=== PATIENT | female | born 1995 | race Caucasian/White ===

== ENCOUNTER 2021-12-31 14:29 | Inpatient (IN) | payer BC ==
[2021-12-31] MEDS ORDERED: TERBUTALINE 1 MG/ML VIAL SQ PRN (14:48)
[2021-12-31] MEDS ORDERED: CLINDAMYCIN 900 MG in DEXTROSE 5% IN WATER 50 ML IVPB STA ×2 (14:48)
[2021-12-31] MEDS ORDERED: CARBOPROST TROMETHAMINE 250 MCG/ML 1 ML AMP IM PRN (14:48)
[2021-12-31] MEDS ORDERED: LIDOCAINE 0.5% (PF) 5 MG/ML (50 ML SDV) SQ PRN (14:48)
[2021-12-31] MEDS ORDERED: OXYTOCIN 10 UNIT/ML 1 ML VIAL IM PRN (14:48)
[2021-12-31] MEDS ORDERED: METHYLERGONOVINE 0.2 MG/ML 1 ML AMP IM PRN (14:48)
[2021-12-31] MEDS ORDERED: LACTATED RINGERS 1,000 ML IV SCH (15:00)
[2021-12-31 15:05] LABS: Basophils % (A) 0 %; Eosinophils % (A) 1 %; HCT 36.3 % (34.0-46.0); HGB 12.3 gm/dL (11.4-16.0); Lymphocytes # (A) 1.8 k/uL (1.0-4.8); Lymphocytes % (A) 19 %; MCH 29.4 pg (25.0-35.0); MCV 86.7 fL (80.0-100.0); Mean Platelet Volume 8.3; Monocytes # (A) 0.6 k/uL (0-1.0); Monocytes % (A) 6 %; Neutrophils # (A) 6.8 k/uL (1.3-7.7); Neutrophils % (A) 72 %; Platelet Count 296 k/uL (150-450); RBC 4.19 m/uL (3.80-5.40); RDW 12.3 % (11.5-15.5); WBC 9.5 k/uL (3.8-10.6)
[2021-12-31] MEDS ORDERED: OXYTOCIN 30 UNITS/500 ML NS 30 UNIT in SALINE 1 500ML.BAG IV SCH ×2 (15:45→19:26)
--- NOTE | 2021-12-31 18:41 | P.HPOB ---
History of Present Illness H&P Date: 12/31/21 Chief Complaint: Advanced cervical dilation This is a 26-year-old female 2 para 0 with an estimated date of confinement of 01/29/2022, estimated gestational age of 35-6/7 weeks, who presents to labor and delivery after being seen in the office for her scheduled visit and found to be 7-8 cm. She was checked for the first time a week ago and was found to be 5 cm 80% and -2 station and group B strep was taken at that time. Group B streptococcus is positive. She denies any regular contractions but does state she feels a lot of pressure. With her cervix dilated this dilated, she is sent to labor and delivery for antibiotics and delivery. Her has been uncomplicated up until this time. labs: Group B streptococcus-positive One hour Glucola-75 Obstetrical ultrasound-normal anatomy Hepatitis B surface antigen-negative RPR-nonreactive Rubella-immune Blood type-A+ Antibody screen-negative HIV-nonreactive Hemoglobin-13.6 Toxoplasma-negative Random glucose-84 GC/chlamydia/Trichomonas-negative Obstetrical history: . History of 1 termination of Gynecologic history: No history of sexual transmitted diseases Social history: She is single. 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 Review of Systems Constitutional: Denies chills, Denies fever Eyes: denies blurred vision, denies pain Ears, nose, mouth and throat: Denies headache, Denies sore throat Cardiovascular: Denies chest pain, Denies shortness of breath Respiratory: Denies cough Gastrointestinal: Reports abdominal pain (Irregular mild cramping occasionally) Genitourinary: Reports pelvic pain, Reports Musculoskeletal: Reports low back pain Integumentary: Denies pruritus, Denies rash Neurological: Denies numbness, Denies weakness Psychiatric: Denies anxiety, Denies depression Past Medical History Past Medical History: GERD/Reflux, Rheumatoid Arthritis (RA) (Juvenile) History of Any Multi-Drug Resistant Organisms: None Reported Past Surgical History: Orthopedic Surgery Additional Past Surgical History / Comment(s): ACL Reconstruction Past Anesthesia/Blood Transfusion Reactions: Postoperative Nausea & Vomiting (PONV) Past Psychological History: No Psychological Hx Reported Smoking Status: Former smoker Past Alcohol Use History: None Reported Past Drug Use History: None Reported - Past Family History Father Family Medical History: No Reported History Mother Family Medical History: No Reported History Medications and Allergies Home Medications Medication Instructions Recorded Confirmed Type Vit No.179/Iron/Folic 1 tablet PO DAILY 12/31/21 12/31/21 History [ Tablet] Allergies Allergy/AdvReac Type Severity Reaction Status Date / Time Penicillins Allergy Rash/Hives Verified 12/31/21 14:47 Exam Osteopathic Statement: *. No significant issues noted on an osteopathic structural exam other than those noted in the History and Physical/Consult. Vital Signs Temp Pulse Resp BP Pulse Ox 12/31/21 14:46 97.8 F 74 16 133/74 98 Intake and Output 12/31/21 12/31/21 12/31/21 06:59 14:59 22:59 Other: Weight 83.007 kg HEENT: Within normal limits Heart: Regular rate and rhythm Lungs: Clear to auscultation bilaterally Abdomen: Cervix: 7-8 cm/70-80%/-2 station heart tones: 120s, reactive, category 1 Contractions: Rare Extremities: Negative Homans Results Result Diagrams: 12/31/21 14:50 Assessment and Plan (1) 35 weeks gestation of Current Visit: Yes Status: Acute Code(s): Z3A.35 - 35 WEEKS GESTATION OF SNOMED Code(s): 60226161 (2) labor in third trimester with delivery Current Visit: Yes Status: Acute Code(s): O60.14X0 - LABOR THIRD TRI W DELIVERY THIRD TRI, UNSP SNOMED Code(s): 92804911449127564 (3) Group B Streptococcus carrier, +RV culture, currently Current Visit: Yes Status: Acute Code(s): O99.820 - STREPTOCOCCUS B CARRIER STATE COMPLICATING SNOMED Code(s): 9618306918576 Plan: Admission for advanced cervical dilation. Antibiotic prophylaxis for group B streptococcus. Artificial rupture membranes with oxytocin augmentation of labor if necessary. Expectant management. Pediatrics is notified.
[2021-12-31] MEDS ORDERED: HYDROCORTISONE 2.5% RECTAL CREAM 30 GM TUBE RECTAL PRN (19:26)
[2021-12-31] MEDS ORDERED: LANOLIN CREAM 5 GM TUBE TOPICAL PRN (19:26)
[2021-12-31] MEDS ORDERED: BENZOCAINE/MENTHOL SPRAY 1 GM/SPRAY AEROSOL TOPICAL PRN (19:26)
[2021-12-31] MEDS ORDERED: ZOLPIDEM 5 MG TAB PO PRN (19:26)
[2021-12-31] MEDS ORDERED: diphenhydrAMINE 25 MG CAP PO PRN (19:26)
[2021-12-31] MEDS ORDERED: diphenhydrAMINE 50 MG/ML 1 ML VIAL IVP PRN ×2 (19:26)
[2021-12-31] MEDS ORDERED: SIMETHICONE 80 MG CHEWABLE PO PRN (19:26)
[2021-12-31] MEDS ORDERED: diphenhydrAMINE 50 MG CAP PO PRN (19:26)
--- NOTE | 2021-12-31 19:43 | P.PROBDLV ---
Vaginal Delivery Note - . Vaginal Delivery Note: The patient progressed to complete dilation after artificial rupture membranes with clear fluid noted and oxytocin augmentation of labor. She had nothing for pain. She did have 1 dose of clindamycin. Once reaching complete, she began pushing. Infant's head came to a crown. At this time heart tones were noted to be in the 60s with pushing. Episiotomy was cut after anesthetizing with 1% lidocaine. With one further push the 's head delivered across the per ineum followed by the remainder of the infant. Nose and mouth were bulb suctioned and was placed on mother's abdomen. Cord was clamped and cut and infant was taken to warmer for evaluation by nursing staff. A viable male is noted with scores of 9 at 1 minute and 9 at 5 minutes and weight of 5 lbs. 4 oz. Her placenta delivered shortly thereafter, intact, with a three-vessel cord. Uterus contracted well after oxytocin was given and uterine massage was carried out. Bladder was drained with a catheter. Inspection of the perineum revealed a midline episiotomy with no further extension. This area was anesthetized with 1% lidocaine and then sutured with 3-0 and 2-0 Vicryl suture in the usual multilayer fashion. Estimated blood loss was approximately 200 mL's. Mother is in stable condition and is taken to level I nursery for observation.
[2021-12-31] MEDS: SENNOSIDES-DOCUSATE SODIUM 1 EACH TAB PO SCH (19:47)
[2021-12-31] MEDS: IBUPROFEN 600 MG TAB PO PRN (19:47)
[2021-12-31] MEDS: ACETAMINOPHEN TAB 325 MG TAB PO PRN (22:51)
[2021-12-31] MEDS ORDERED: CLINDAMYCIN 900 MG in DEXTROSE 5% IN WATER 50 ML IVPB SCH ×2 (23:00)
[2022-01-01] MEDS: IBUPROFEN 600 MG TAB PO PRN ×3 (04:01→23:39)
[2022-01-01 06:29] LABS: Basophils % (A) 0 %; Eosinophils # (A) 0.1 k/uL (0-0.7); Eosinophils % (A) 0 %; HCT 32.5 % (34.0-46.0); HGB 11.2 gm/dL (11.4-16.0); Lymphocytes # (A) 1.8 k/uL (1.0-4.8); Lymphocytes % (A) 14 %; MCH 30.3 pg (25.0-35.0); MCHC 34.4 g/dL (31.0-37.0); MCV 88.1 fL (80.0-100.0); Mean Platelet Volume 8.4; Monocytes # (A) 0.7 k/uL (0-1.0); Monocytes % (A) 6 %; Neutrophils # (A) 10.3 k/uL (1.3-7.7); Neutrophils % (A) 79 %; Platelet Count 268 k/uL (150-450); RBC 3.69 m/uL (3.80-5.40); RDW 12.5 % (11.5-15.5)
[2022-01-01] MEDS: ACETAMINOPHEN TAB 325 MG TAB PO PRN ×2 (07:29→18:38)
[2022-01-01] MEDS: SENNOSIDES-DOCUSATE SODIUM 1 EACH TAB PO SCH ×2 (07:29→23:09)
--- NOTE | 2022-01-01 08:03 | P.PNOBGVD ---
Subjective - Subjective Principal diagnosis: Status post vaginal delivery day #1 Interval history: Patient is doing well. Lochia is decreasing. Her pain is fairly well controlled with ibuprofen. She is pumping her breast milk. Baby is in level I nursery. Patient reports: Reports appetite normal, Reports voiding normally, Reports pain well controlled, Reports ambulating normally : other (In level I nursery) Objective - Latest Vital Signs Latest vital signs: Vital Signs Temp Pulse Resp BP Pulse Ox 01/01/22 07:30 98.3 F 67 16 104/60 99 01/01/22 04:00 97.8 F 77 16 101/60 99 01/01/22 00:00 98.3 F 72 14 103/61 99 12/31/21 21:29 96.9 F L 71 14 125/64 12/31/21 20:59 78 16 125/63 12/31/21 20:29 88 14 116/76 12/31/21 20:14 97.3 F L 92 14 104/63 12/31/21 19:59 81 14 110/62 12/31/21 19:44 67 14 111/55 12/31/21 19:29 97.2 F L 80 16 112/56 12/31/21 14:46 97.8 F 74 16 133/74 98 Intake and Output 12/31/21 01/01/22 01/01/22 22:59 06:59 14:59 Intake Total 900 Output Total 419 Balance 481 Intake: IV 900 Output: Urine 300 Output, Quantitative 119 Blood Loss Other: Voiding Method Toilet # Voids 1 - Exam Extremities: Present: normal. Absent: tenderness, edema Abdomen: Present: normal appearance, soft. Absent: distention, tenderness Uterus: Present: normal, firm. Absent: tenderness - Labs Labs: Abnormal Lab Results - Last 24 Hours (Table) 01/01/22 Range/Units 06:07 WBC 13.0 H (3.8-10.6) k/uL RBC 3.69 L (3.80-5.40) m/uL Hgb 11.2 L (11.4-16.0) gm/dL Hct 32.5 L (34.0-46.0) % Neutrophils # 10.3 H (1.3-7.7) k/uL Assessment and Plan Assessment: Status post vaginal delivery day #1 (1) 35 weeks gestation of Current Visit: Yes Status: Acute Code(s): Z3A.35 - 35 WEEKS GESTATION OF SNOMED Code(s): 38981124 (2) labor in third trimester with delivery Current Visit: Yes Status: Acute Code(s): O60.14X0 - LABOR THIRD TRI W DELIVERY THIRD TRI, UNSP SNOMED Code(s): 29916881187770578 (3) Group B Streptococcus carrier, +RV culture, currently Current Visit: Yes Status: Acute Code(s): O99.820 - STREPTOCOCCUS B CARRIER STATE COMPLICATING SNOMED Code(s): 6238051589907 Plan: Continue care. Anticipate discharge home tomorrow. Breast pump prescription is given.
[2022-01-01] MEDS: PRENATAL VIT-IRON-FOLIC ACID 1 EACH TABLET PO SCH (09:15)
--- NOTE | 2022-01-02 07:46 | P.DS ---
Providers Date of admission: 12/31/21 14:29 Expected date of discharge: 01/02/22 Attending physician: Aicha Juares Primary care physician: Stated None - Discharge Diagnosis(es) (1) Normal vaginal delivery Current Visit: Yes Status: Acute Hospital Course: Patient presented to the office dilated 7 cm. She was sent to the hospital to undergo Pitocin augmentation. She underwent normal vaginal delivery. course was uncomplicated. She denies nausea, vomiting, chest pain, shortness of breath or any calf pain. Patient will be discharged home po stpartum day #2 in stable condition to follow-up with Dr. Juares in 6 weeks. Plan - Discharge Summary New Discharge Prescriptions: New Ibuprofen [Motrin] 600 mg PO Q6HR PRN #60 tab PRN Reason: Mild Pain (Scale 1 To 3) No Action Vit No.179/Iron/Folic [ Tablet] 1 tablet PO DAILY Discharge Medication List Vit No.179/Iron/Folic [ Tablet] 1 tablet PO DAILY 12/31/21 [History] Ibuprofen [Motrin] 600 mg PO Q6HR PRN #60 tab 01/01/22 [Rx] Follow up Appointment(s)/Referral(s): Aicha Juares DO [Doctor of Osteopathic Medicine] - 6 Weeks Activity/Diet/Wound Care/Special Instructions: Instructions 1. Do not begin any exercise program for 3 weeks. 2. Do not resume sexual relations for 3 weeks or longer if uncomfortable. 3. You may take tub baths or showers at any time. 4. You may use tampons if desired after 3 weeks. 5. Keep the area of episiotomy (stitches) clean and dry. 6. If you are not nursing, wear a good fitting, supportive bra during the day and limit fluid intake for at least 1 week to prevent breast engorgement. 7. Call the office, [phone], within the next week to make appointment for your 6 week checkup if it has not already been made. 8. Report any of the following occurrences to the doctor promptly: a. Heavy, excessive bleeding b. Chills, fever c. Burning or frequency of urination d. Pain or redness and breasts if nursing e. Increasing pain or swelling in episiotomy (stitches). In addition to the above instructions, the following additional should be followed: 1. No heavy lifting or straining (exercising) until after 6 week checkup. 2. Keep abdominal incision clean and dry: You may wear a dressing if more comfortable. 3. Make office appointment for 10 days after going home or as instructed by her doctor. Discharge Disposition: HOME SELF-CARE
[2022-01-02 09:05] VITALS: BP 117/72; PULSE 70; RESP 17; TEMP 98
[2022-01-02] MEDS: SENNOSIDES-DOCUSATE SODIUM 1 EACH TAB PO SCH (09:08)
[2022-01-02] MEDS: PRENATAL VIT-IRON-FOLIC ACID 1 EACH TABLET PO SCH (09:11)
== END 2022-01-02 12:00 | disposition home or self-care (01) | DRG 807 ==
LOC: 4FBP 14:29
PROVIDERS: ADMIT Obstetrics & Gynecology; ATTEND Obstetrics & Gynecology
PROC: 10E0XZZ Delivery of Products of Conception, External Approach (ICD-10-PCS; principal; 2021-12-31)
PROC: 10907ZC Drainage of Amniotic Fluid, Therapeutic from Products of Conception, Via Natural or Artificial Opening (ICD-10-PCS; 2021-12-31)
PROC: 0W8NXZZ Division of Female Perineum, External Approach (ICD-10-PCS; 2021-12-31)
DX: O60.14X0 Preterm labor third trimester with preterm delivery third trimester, not applicable or unspecified (principal); Z37.0 Single live birth; Z3A.35 35 weeks gestation of pregnancy; O99.824 Streptococcus B carrier state complicating childbirth; Z87.891 Personal history of nicotine dependence; Z88.0 Allergy status to penicillin
CPT/HCPCS: 85025; 86850; 86900; 86901

== ENCOUNTER 2023-08-17 18:17 | Emergency (ER) | payer BC ==
[2023-08-17 19:04] VITALS: RESP 18; TEMP 98.1
--- NOTE | 2023-08-17 19:12 | ED ---
Abdominal Pain HPI - General Source: patient Mode of arrival: ambulatory Limitations: no limitations <Earl Naranjo - Last Filed: 08/17/23 19:10> - General Source: patient, RN notes reviewed Mode of arrival: ambulatory Limitations: no limitations - History of Present Illness MD Complaint: abdominal pain <Mayda Elaine - Last Filed: 08/17/23 22:50> - General Chief Complaint: Abdominal Pain Stated Complaint: abd pain N/V/D headache Time Seen by Provider: 08/17/23 20:20 - History of Present Illness Initial Comments: 28-year-old female presenting with chief complaint of abdominal pain. She also admits to vomiting and diarrhea. Seems to be worse at night. (Earl Naranjo) This is a 28-year-old female who presents to the emergency department for abdominal pain. States that this started 2 days ago. She does okay during the day, however at night she develops severe pain in the epigastric region of her abdomen with nausea and vomiting. Unsure if this relates to any specific foods, as she has not had anything to eat today, and today the pain is worse than it has ever been. Prior to 2 days ago, she has never experienced anything like this in the past. Reports some diarrhea. (Mayda Elaine) - Related Data Home Medications Medication Instructions Recorded Confirmed Vit No.179/Iron/Folic 1 tablet PO DAILY 12/31/21 12/31/21 [ Tablet] Previous Rx's Medication Instructions Recorded Ibuprofen [Motrin] 600 mg PO Q6HR PRN #60 tab 01/01/22 Ketorolac [Toradol] 10 mg PO Q6HR PRN #15 tab 08/17/23 Ondansetron Odt [Zofran Odt] 4 mg PO Q8HR PRN #20 tab 08/17/23 Allergies Allergy/AdvReac Type Severity Reaction Status Date / Time Penicillins Allergy Rash/Hives Verified 12/31/21 14:47 Review of Systems ROS Other: All systems not noted in ROS Statement are negative. <Earl Naranjo - Last Filed: 08/17/23 19:10> ROS Other: All systems not noted in ROS Statement are negative. <Mayda Elaine - Last Filed: 08/17/23 22:50> ROS Statement: Those systems with pertinent positive or pertinent negative responses have been documented in the HPI. Past Medical History Past Medical History: GERD/Reflux, Rheumatoid Arthritis (RA) History of Any Multi-Drug Resistant Organisms: None Reported Past Surgical History: Orthopedic Surgery Additional Past Surgical History / Comment(s): ACL Reconstruction Past Anesthesia/Blood Transfusion Reactions: Postoperative Nausea & Vomiting (PONV) Past Psychological History: No Psychological Hx Reported Smoking Status: Former smoker Past Alcohol Use History: None Reported Past Drug Use History: None Reported - Past Family History Father Family Medical History: No Reported History Mother Family Medical History: No Reported History <aErl Naranjo - Last Filed: 08/17/23 19:10> General Exam Limitations: no limitations <Earl Naranjo - Last Filed: 08/17/23 19:10> Limitations: no limitations General appearance: alert, in no apparent distress Head exam: Present: atraumatic, normocephalic, normal inspection Respiratory exam: Present: normal lung sounds bilaterally. Absent: respiratory distress, wheezes, rales, rhonchi, stridor Cardiovascular Exam: Present: regular rate, normal rhythm, normal heart sounds. Absent: systolic murmur, diastolic murmur, rubs, gallop, clicks GI/Abdominal exam: Present: soft, tenderness (Epigastric), normal bowel sounds. Absent: distended Neurological exam: Present: alert, oriented X3, CN II-XII intact Psychiatric exam: Present: normal affect, normal mood Skin exam: Present: warm, dry, intact, normal color. Absent: rash <Mayda Elaine - Last Filed: 08/17/23 22:50> - General Exam Comments Initial Comments: Visual Physical Exam Vital signs reviewed General: Well-appearing, nontoxic, no acute distress. Head: Normocephalic, atraumatic Eyes: PERRLA, EOMI ENT: Airway patent Chest: Nonlabored breathing Skin: No visual rash, normal skin tone Neuro: Alert and oriented 3 Musculoskeletal: No gross abnormalities (Earl Naranjo) Course Vital Signs 08/17/23 08/17/23 18:43 22:32 Temperature 98.1 F Pulse Rate 60 78 Respiratory 18 18 Rate Blood Pressure 122/88 120/70 O2 Sat by Pulse 100 100 Oximetry Medical Decision Making <Earl Naranjo - Last Filed: 08/17/23 19:10> - Lab Data Result diagrams: 08/17/23 20:17 08/17/23 20:17 - Radiology Data Radiology results: report reviewed, image reviewed <[email or web address] - Last Filed: 08/17/23 22:50> - Medical Decision Making I performed the quick note portion of this visit, electronically signed Earl Naranjo PA-C (Earl Naranjo) This is a 28-year-old female who presents to the emergency department for abdominal pain. Was pt. sent in by a medical professional or institution? @ -No Did you speak to anyone other than the patient for history? @ -No Did you review nursing and triage notes? @ -Yes, and I agree, it is accurate with regards to the patient's symptoms. Were old charts reviewed? @ -No Differential Diagnosis? @ -Differential Abdominal Pain Women: Appendicitis, Cholecystitis, diverticulosis, ischemic bowel, pancreatitis, hepatitis, UTI, gastroenteritis, AAA, incarcerated hernia, bowel obstruction, constipation, inflammatory bowel, hepatitis, peptic ulcer disease, splenic i nfarction, perforated viscus, vulvitis, ovarian torsion, PID, kidney stone, placenta abruption, this is not meant to be an all-inclusive list EKG interpreted by me (3pts min.)? @ -Not obtained X-rays interpreted by me (1pt min.)? @ -Not obtained CT interpreted by me (1pt min.)? @ -CT scan of the abdomen and pelvis obtained. My interpretation identifies mild wall thickening of the small bowel. U/S interpreted by me (1pt. min.)? @ -Gallbladder ultrasound obtained. My interpretation identifies no evidence of cholelithiasis. What testing was considered but not performed? (CT, X-rays, U/S, labs)? Why? @ -None What meds were considered but not given? Why? @ -None Did you discuss the management of the patient with other professionals? @ -No Did you reconcile home meds? @ -No Was smoking cessation discussed for >3mins.? @ -No Was critical care preformed (if so, how long)? @ -No Were there social determinants of health that impacted care today? How? (Homelessness, low income, unemployed, alcoholism, drug addiction, tra nsportation, low edu. Level, literacy, decrease access to med. care, prison, rehab)? @ -No Was there de-escalation of care discussed even if they declined? (Discuss DNR or withdrawal of care, Hospice)? @ -No What co-morbidities impacted this encounter? (DM, HTN, Smoking, COPD, CAD, Cancer, CVA, Hep., AIDS, mental health diagnosis, sleep apnea, morbid obesity)? @ -GERD Was patient admitted / discharged? @ -Discharged. Lab work obtained revealing leukocytosis and was otherwise unremarkable. Urinalysis negative for signs of infection. Gallbladder ultrasound obtained demonstrating a right hepatic lobe hemangioma without evidence for acute process or gallbladder irregularities. Her symptoms are well-controlled with IV fluids, Toradol, and Zofran. Discussed with the patient that symptoms could be related to biliary dyskinesia or other process. I did offer to obtain a CT scan for further evaluation given the associated leukocytosis. Patient was in agreement to additional imaging, but requested dis charge due to the duration of her visit in the emergency department and to be contacted with any irregularities that would necessitate her return. CT scan of the abdomen and pelvis demonstrates mild wall thickening of the small bowel suggestive of enteritis. Patient contacted regarding the results, and that she can continue with symptomatic management. I did advise she follow-up with her primary care provider to discuss a HIDA scan for further evaluation of her gallbladder function. Prescription for Toradol and Zofran provided with dosing instructions reviewed. Patient discharged home in stable condition. Undiagnosed new problem with uncertain prognosis? @ -None Drug Therapy requiring intensive monitoring for toxicity (Heparin, Nitro, Insulin, Cardizem)? @ -None Were any procedures done? @ -None Diagnosis/symptom? @ -Abdominal pain, enteritis Acute, or Chronic, or Acute on Chronic? @ -Acute Uncomplicated (without systemic symptoms) or Complicated (systemic symptoms)? @ -Uncomplicated Side effects of treatment? @ -None Exacerbation, Progression, or Severe Exacerbation] @ -Not applicable Poses a threat to life or bodily function? @ -No Return precautions reviewed in depth, the patient is instructed to return to the emergency department with any new, worsening, or concerning symptoms. Patient verbalized understanding. This case was discussed in detail with the attending ED physician, Dr. Solorio. Presentation, findings, and treatment plan discussed in detail as well. (Mayda Elaine) - Lab Data Lab Results 08/17/23 08/17/23 08/17/23 Range/Units 20:17 20:17 20:25 WBC 14.0 H (3.8-10.6) k/uL RBC 4.44 (3.80-5.40) m/uL Hgb 13.4 (11.4-16.0) gm/dL Hct 38.4 (34.0-46.0) % MCV 86.4 (80.0-100.0) fL MCH 30.0 (25.0-35.0) pg MCHC 34.8 (31.0-37.0) g/dL RDW 12.2 (11.5-15.5) % Plt Count 325 (150-450) k/uL MPV 7.3 Neutrophils % 82 % Lymphocytes % 12 % Monocytes % 4 % Eosinophils % 1 % Basophils % 0 % Neutrophils # 11.4 H (1.3-7.7) k/uL Lymphocytes # 1.7 (1.0-4.8) k/uL Monocytes # 0.5 (0-1.0) k/uL Eosinophils # 0.1 (0-0.7) k/uL Basophils # 0.0 (0-0.2) k/uL Sodium 136 L (137-145) mmol/L Potassium 3.8 (3.5-5.1) mmol/L Chloride 107 (98-107) mmol/L Carbon Dioxide 20 L (22-30) mmol/L Anion Gap 9 mmol/L BUN 9 (7-17) mg/dL Creatinine 0.63 (0.52-1.04) mg/dL Est GFR (CKD-EPI)AfAm >90 (>60 ml/min/1.73 sqM) Est GFR (CKD-EPI)NonAf >90 (>60 ml/min/1.73 sqM) Glucose 101 H (74-99) mg/dL Calcium 9.2 (8.4-10.2) mg/dL Total Bilirubin 0.8 (0.2-1.3) mg/dL AST 19 (14-36) U/L ALT 12 (4-34) U/L Alkaline Phosphatase 48 (38-126) U/L Total Protein 7.2 (6.3-8.2) g/dL Albumin 4.6 (3.5-5.0) g/dL Amylase 58 (30-110) U/L Lipase 36 (23-300) U/L Urine Color Yellow Urine Appearance Clear (Clear) Urine pH 7.5 (5.0-8.0) Ur Specific [place] 1.034 (1.001-1.035) Urine Protein 1+ H (Negative) Urine Glucose (UA) Negative (Negative) Urine Ketones 4+ H (Negative) Urine Blood Negative (Negative) Urine Nitrite Negative (Negative) Urine Bilirubin Negative (Negative) Urine Urobilinogen 2.0 (<2.0) mg/dL Ur Leukocyte Esterase Small H (Negative) Urine RBC 3 (0-5) /hpf Urine WBC 6 H (0-5) /hpf Ur Squamous Epith Cells 3 (0-4) /hpf Urine Mucus Many H (None) /hpf Urine HCG, Qual (Not Detectd) 08/17/23 Range/Units 20:25 WBC (3.8-10.6) k/uL RBC (3.80-5.40) m/uL Hgb (11.4-16.0) gm/dL Hct (34.0-46.0) % MCV (80.0-100.0) fL MCH (25.0-35.0) pg MCHC (31.0-37.0) g/dL RDW (11.5-15.5) % Plt Count (150-450) k/uL MPV Neutrophils % % Lymphocytes % % Monocytes % % Eosinophils % % Basophils % % Neutrophils # (1.3-7.7) k/uL Lymphocytes # (1.0-4.8) k/uL Monocytes # (0-1.0) k/uL Eosinophils # (0-0.7) k/uL Basophils # (0-0.2) k/uL Sodium (137-145) mmol/L Potassium (3.5-5.1) mmol/L Chloride (98-107) mmol/L Carbon Dioxide (22-30) mmol/L Anion Gap mmol/L BUN (7-17) mg/dL Creatinine (0.52-1.04) mg/dL Est GFR (CKD-EPI)AfAm (>60 ml/min/1.73 sqM) Est GFR (CKD-EPI)NonAf (>60 ml/min/1.73 sqM) Glucose (74-99) mg/dL Calcium (8.4-10.2) mg/dL Total Bilirubin (0.2-1.3) mg/dL AST (14-36) U/L ALT (4-34) U/L Alkaline Phosphatase (38-126) U/L Total Protein (6.3-8.2) g/dL Albumin (3.5-5.0) g/dL Amylase (30-110) U/L Lipase (23-300) U/L Urine Color Urine Appearance (Clear) Urine pH (5.0-8.0) Ur Specific [place] (1.001-1.035) Urine Protein (Negative) Urine Glucose (UA) (Negative) Urine Ketones (Negative) Urine Blood (Negative) Urine Nitrite (Negative) Urine Bilirubin (Negative) Urine Urobilinogen (<2.0) mg/dL Ur Leukocyte Esterase (Negative) Urine RBC (0-5) /hpf Urine WBC (0-5) /hpf Ur Squamous Epith Cells (0-4) /hpf Urine Mucus (None) /hpf Urine HCG, Qual Not Detected (Not Detectd) Disposition <Earl Naranjo - Last Filed: 08/17/23 19:10> Is patient prescribed a controlled substance at d/c from ED?: No Time of Disposition: 22:17 <Mayda Elaine - Last Filed: 08/17/23 22:50> Clinical Impression: Abdominal pain Disposition: HOME SELF-CARE Instructions (If sedation given, give patient instructions): Abdominal Pain (ED) Additional Instructions: Return to the emergency department with any new, worsening, or concerning symptoms. We will contact you if the CT scan shows anything abnormal. Take the Toradol with Tylenol as needed for pain relief. If you choose to take the Toradol, do not take any other anti-inflammatories such as ibuprofen, take one or the other. Take the Zofran up to every 8 hours as needed for nausea and vomiting. Follow up with your primary care provider in 1-2 days. You may need a HIDA scan for evaluation of your gallbladder function. Prescriptions: Ketorolac [Toradol] 10 mg PO Q6HR PRN #15 tab PRN Reason: Pain Ondansetron Odt [Zofran Odt] 4 mg PO Q8HR PRN #20 tab PRN Reason: Nausea And Vomiting Referrals: Laura Jimenez DO [Primary Care Provider] - 1-2 days
[2023-08-17 20:26] LABS: Basophils % (A) 0 %; Eosinophils # (A) 0.1 k/uL (0-0.7); Eosinophils % (A) 1 %; HCT 38.4 % (34.0-46.0); HGB 13.4 gm/dL (11.4-16.0); Lymphocytes # (A) 1.7 k/uL (1.0-4.8); Lymphocytes % (A) 12 %; MCHC 34.8 g/dL (31.0-37.0); MCV 86.4 fL (80.0-100.0); Mean Platelet Volume 7.3; Monocytes # (A) 0.5 k/uL (0-1.0); Monocytes % (A) 4 %; Neutrophils # (A) 11.4 k/uL (1.3-7.7); Neutrophils % (A) 82 %; Platelet Count 325 k/uL (150-450); RBC 4.44 m/uL (3.80-5.40); RDW 12.2 % (11.5-15.5)
[2023-08-17 20:33] LABS: Appearance,Urine Clear (Clear); Bilirubin,Urine Negative (Negative); Blood,Urine Negative (Negative); Color,Urine Yellow; Glucose,Urine (UA) Negative (Negative); Ketones,Urine 4+ (Negative); Leukocyte Esterase,Urine Small (Negative); Mucus,Urine Many /hpf; Nitrite,Urine Negative (Negative); PH, Urine 7.5 (5.0-8.0); Protein,Urine 1+ (Negative); RBC,Urine 3 /hpf (0-5); Specific Gravity,Urine 1.034 (1.001-1.035); Squamous Epithelial Cell,Urine 3 /hpf (0-4); WBC,Urine 6 /hpf (0-5)
[2023-08-17] MEDS: ONDANSETRON 4 MG/2 ML VIAL IVP STA (20:33)
[2023-08-17] MEDS: KETOROLAC 15 MG/ML 1 ML VIAL IVP STA (20:35)
[2023-08-17] MEDS: SODIUM CHLORIDE 0.9% 1,000 ML IV STA (20:37)
[2023-08-17 20:38] LABS: ALT 12 U/L (4-34); AST 19 U/L (14-36); African American GFR (CKD) >90 (>60 ml/min/1.73 sqM); Albumin 4.6 g/dL (3.5-5.0); Alkaline Phosphatase 48 U/L (38-126); Amylase 58 U/L (30-110); Anion Gap 9 mmol/L; Blood Urea Nitrogen 9 mg/dL (7-17); Calcium 9.2 mg/dL (8.4-10.2); Carbon Dioxide 20 mmol/L (22-30); Chloride 107 mmol/L (98-107); Glucose 101 mg/dL (74-99); Lipase 36 U/L (23-300); Non-African American GFR(CKD) >90 (>60 ml/min/1.73 sqM); Potassium 3.8 mmol/L (3.5-5.1); Sodium 136 mmol/L (137-145); Total Bilirubin 0.8 mg/dL (0.2-1.3); Total Protein 7.2 g/dL (6.3-8.2)
--- NOTE | 2023-08-17 21:50 | US ---
EXAMINATION TYPE: US gallbladder DATE OF EXAM: 08/17/2023 COMPARISON: NONE CLINICAL INDICATION: Female, 28 years old with history of RUQ pain; RUQ pain TECHNIQUE: Multiple sonographic images of the right upper quadrant are obtained. FINDINGS: EXAM MEASUREMENTS: Liver Length: 17.5 cm Gallbladder Wall: 0.17 cm CBD: 0.07 cm Right Kidney: 11.0 x 5.0 x 4.3 cm Pancreas: wnl Liver: Hyperechoic area seen in right lobe of liver measuring 1.1 x 1.2 x 1.1cm Gallbladder: Upper limits of normal measuring 10cm. No wall thickening or stones seen Evidence for sonographic Bucio's sign: No CBD: wnl Right Kidney: wnl IMPRESSION: 1. No evidence for acute process. 2. Right hepatic lobe suspected hemangioma measuring up to 1.2 cm.
[2023-08-17] MEDS: FAMOTIDINE 20 MG/2 ML VIAL IV STA (21:58)
[2023-08-17] MEDS: ONDANSETRON 4 MG ODT STARTER PACK 2 TAB BTL PO STA (22:28)
[2023-08-17] MEDS: traMADol 50 MG STARTER PACK 3 TAB BTL PO STA (22:28)
--- NOTE | 2023-08-17 22:37 | CT ---
EXAM: CT Abdomen and Pelvis With Intravenous Contrast CLINICAL HISTORY: ITS.REASON CT Reason: Epigastric pain TECHNIQUE: Axial computed tomography images of the abdomen and pelvis with intravenous contrast. CTDI is 15.3 mGy and DLP is 737.8 mGy-cm. This CT exam was performed using one or more of the following dose reduction techniques: automated exposure control, adjustment of the mA and/or kV according to patient size, and/or use of iterative reconstruction technique. COMPARISON: No relevant prior studies available. FINDINGS: Lung bases: Unremarkable. No mass. No consolidation. ABDOMEN: Liver: Unremarkable. No mass. Gallbladder and bile ducts: Unremarkable. No calcified stones. No ductal dilation. Pancreas: Unremarkable. No mass. No ductal dilation. Spleen: Unremarkable. No splenomegaly. Adrenals: Unremarkable. No mass. Kidneys and ureters: Unremarkable. No solid mass. No hydronephrosis. Stomach and bowel: Mild wall thickening of small bowel, correlate for enteritis. Liquid stool in the colon, correlate for diarrheal disease. No obstruction. PELVIS: Appendix: No findings to suggest acute appendicitis. Bladder: Unremarkable. No mass. Reproductive: Unremarkable as visualized. ABDOMEN and PELVIS: Intraperitoneal space: Unremarkable. No free air. No significant fluid collection. Bones/joints: No acute fracture. No dislocation. Soft tissues: Unremarkable. Vasculature: Unremarkable. No abdominal aortic aneurysm. Lymph nodes: Unremarkable. No enlarged lymph nodes. IMPRESSION: 1. Mild wall thickening of small bowel, correlate for enteritis. 2. Liquid stool in the colon, correlate for diarrheal disease.
[2023-08-17 22:56] VITALS: BP 120/70; PULSE 78
== END 2023-08-17 22:33 | disposition home or self-care (01) ==
LOC: EC 18:17
DX: K52.9 Noninfective gastroenteritis and colitis, unspecified (principal); D18.03 Hemangioma of intra-abdominal structures; K21.9 Gastro-esophageal reflux disease without esophagitis; Z88.0 Allergy status to penicillin; Z87.891 Personal history of nicotine dependence
CPT/HCPCS: 36415; 80053; 82150; 83690; 85025; 81001; 81025; 76705; 74177; 99284; 96374; 96375; 96361; J2405; J1885; S0119; Q9967

== ENCOUNTER → 2023-08-27 | Outpatient (CLI) | payer BC ==
--- NOTE | 2023-08-27 11:16 | NM ---
EXAMINATION TYPE: NM hepatobiliary w EF DATE OF EXAM: 08/27/2023 COMPARISON: NONE CLINICAL INDICATION: Female, 28 years old with history of R10.13 EPIGASTRIC PAIN; TECHNIQUE: After the intravenous administration of mCi Tc 99m Mebrofenin hepatobiliary scintigraphy i s performed. Immediate images post injection. FINDINGS: There is satisfactory initial accumulation of tracer by the liver. The gallbladder is visualized wit hin 10 minutes. The small bowel activity is noted within 22 minutes. At one hour 8 ounces of oral e nsure plus is given to mimic CCK and gallbladder ejection fraction is calculated at 89%. IMPRESSION: Correlate for hypercontractile state.
== END | disposition home or self-care (01) ==
LOC: RADNMMAIN 06:41
PROVIDERS: ATTEND Family Medicine
DX: R10.13 Epigastric pain (principal)
CPT/HCPCS: 78226; A9537